=== PATIENT | female | born 1990 | race African-American/Black ===

== ENCOUNTER 2018-03-28 16:43 | Emergency (ER) | payer MEDICAID ==
--- NOTE | 2018-03-28 17:54 | ER Document Report ---
ED Medical Screen (RME) - General Chief Complaint: Arm Pain Stated Complaint: RIGHT ARM PAIN Time Seen by Provider: 03/28/18 17:39 Notes: 27-year-old female patient reports some discomfort in her right shoulder when she went to bed Friday night, woke up Friday with considerable pain in the shoulder that has persisted. She is most comfortable if she abducts the shoulder, and places the elbow in flexion with the wrist across the abdomen and supports and stabilizes the forearm with her left hand. There is no history of injury, strain, heavy lifting. I have greeted and performed a rapid initial assessment of this patient. A com prehensive ED assessment and evaluation of the patient, analysis of test results and completion of the medical decision making process will be conducted by additional ED providers. TRAVEL OUTSIDE OF THE [place] IN LAST 30 DAYS: No - Related Data Allergies/Adverse Reactions: No Known Allergies Allergy (Verified 03/28/18 17:34) Past Medical History - Social History Chew tobacco use (# tins/day): No Frequency of alcohol use: None Drug Abuse: None Renal/ Medical History: Denies: Hx Peritoneal Dialysis - Immunizations Hx Diphtheria, Pertussis, Tetanus Vaccination: Yes Physical Exam - Vital signs Vitals: Temp Pulse Resp BP Pulse Ox 98.0 F 79 16 129/82 H 98 03/28/18 16:50 03/28/18 16:50 03/28/18 16:50 03/28/18 16:50 03/28/18 16:50 Course - Vital Signs Vital signs: Temp Pulse Resp BP Pulse Ox 98.0 F 79 16 129/82 H 98 03/28/18 16:50 03/28/18 16:50 03/28/18 16:50 03/28/18 16:50 03/28/18 16:50 Doctor's Discharge - Discharge Referrals: RENÉE SQUIRES MD [Primary Care Provider] - Follow up as needed
--- NOTE | 2018-03-28 18:35 | RADIOLOGY REPORT (SQ) ---
EXAM DESCRIPTION: SHOULDER RIGHT 2 OR MORE VIEWS COMPLETED DATE/TIME: 03/28/2018 6:24 pm REASON FOR STUDY: Right shoulder pain times 6 days COMPARISON: None. NUMBER OF VIEWS: Three views. TECHNIQUE: Internal rotation, external rotation, and Y view images acquired of the right shoulder. LIMITATIONS: None. FINDINGS: MINERALIZATION: Normal. BONES: No acute fracture or dislocation. No worrisome bone lesions. JOINTS: No dislocation. VISUALIZED LUNGS AND RIBS: No pneumothorax. No rib fracture. SOFT TISSUES: No radiopaque foreign body. OTHER: No other significant finding. IMPRESSION: NO RADIOGRAPHIC EVIDENCE OF ACUTE INJURY. TECHNICAL DOCUMENTATION: JOB ID: [id number] [id number] 2010 [employer]- All Rights Reserved Reading location - IP/workstation name: [email or web address]
[2018-03-28] MEDS ORDERED: IBUPROFEN 600 MG TABLET PO ONE (19:18)
[2018-03-28] MEDS ORDERED: METHOCARBAMOL 750 MG TABLET PO ONE (19:20)
--- NOTE | 2018-03-28 19:25 | ER Document Report ---
HPI - HPI Time Seen by Provider: 03/28/18 17:39 Pain Level: 4 Notes: Patient is a 27-year-old female who complains of right shoulder pain that started . She states she woke up with the pain, denies any known trauma or injury to the area. States she has taken Tylenol and ibuprofen with minimal relief. - REPRODUCTIVE Reproductive: DENIES: : - MUSCULOSKELETAL Musculoskeletal: REPORTS: Extremity pain - right shoulder Past Medical History - General Information source: Patient - Social History Smoking Status: Never Smoker Chew tobacco use (# tins/day): No Frequency of alcohol use: None Drug Abuse: None Family History: Reviewed & Not Pertinent Patient has suicidal ideation: No Patient has homicidal ideation: No - Medical History Medical History: Negative Renal/ Medical History: Denies: Hx Peritoneal Dialysis Past Surgical History: Reports: Other - Skin grafts - Immunizations Hx Diphtheria, Pertussis, Tetanus Vaccination: Yes Vertical Provider Document - CONSTITUTIONAL Notes: PHYSICAL EXAMINATION: GENERAL: Well-appearing, well-nourished and in no acute distress. HEAD: Atraumatic, normocephalic. EYES: Pupils equal round extraocular movements intact, conjunctiva are normal. ENT: Nares patent NECK: Normal range of motion LUNGS: No respiratory distress Musculoskeletal: Normal range of motion to right arm/shoulder. Tenderness to palpation to anterior shoulder. Normal motor and sensation, cap refill less than 3 seconds, normal pulses distal to area of pain. NEUROLOGICAL: Normal speech, normal gait. PSYCH: Normal mood, normal affect. SKIN: Warm, Dry, normal turgor, no rashes or lesions noted. - INFECTION CONTROL TRAVEL OUTSIDE OF THE [place] IN LAST 30 DAYS: No Course - Re-evaluation Re-evalutation: Shoulder x-rays negative for any acute findings. Patient will be placed in sling for comfort. Encouraged to follow-up with primary care if the pain persists over the next couple of weeks. Patient verbalizes understanding. - Vital Signs Vital signs: Temp Pulse Resp BP Pulse Ox 98.0 F 79 16 129/82 H 98 03/28/18 16:50 03/28/18 16:50 03/28/18 16:50 03/28/18 16:50 03/28/18 16:50 Procedures - Immobilization Right arm Pre-Proc Neuro Vasc Exam: Normal Immobilizer type: Sling Performed by: PCT Post-Proc Neuro Vasc Exam: Normal Alignment checked and good: Yes Discharge - Discharge Clinical Impression: Shoulder pain Qualifiers: Chronicity: acute Laterality: right Qualified Code(s): M25.511 - Pain in right shoulder Condition: Stable Disposition: HOME, SELF-CARE Additional Instructions: Shoulder Injury You have injured your shoulder. This usually results from stretching or tearing of the tendons during trauma. Time and protection are required in order to heal properly. Many injuries are quite disabling, and should be taken seriously. Initial treatment includes cold packs and a sling to rest the shoulder. The physician has assessed the seriousness of your injury, and has outlined a treatment plan. Understand that this treatment may change, depending on how you progress. If a re-examination was recommended, it is important that you follow up as instructed. Some shoulder injuries (such as partial tear of the rotator cuff) are only suspected after you've failed to improve. Call us if there's severe pain, numbness, or loss of function. I have provided a copy of your x-ray today. Please take this to your primary care provider. In the meanwhile use the ibuprofen and the muscle relaxer as prescribed. You may also alternate ice and heat to the area and use the sling for comfort. Prescriptions: Ibuprofen [Motrin 800 mg Tablet] 800 mg PO Q8H PRN #30 tab PRN Reason: Methocarbamol [Robaxin 750 mg Tablet] 750 mg PO ASDIR PRN #40 tablet PRN Reason: Referrals: RENÉE SQUIRES MD [ACTIVE STAFF] - Follow up as needed
[2018-03-28 19:40] VITALS: BP 111/71
== END 2018-03-28 19:40 | disposition home or self-care (01) ==
LOC: ER 16:43
DX: M25.511 Pain in right shoulder (principal)
CPT/HCPCS: 99283; 73030; J3490 ×2